=== PATIENT | male | born 1995 | race African-American/Black ===

== ENCOUNTER 2017-02-09 07:16 | Observation (INO) | payer OTHER ==
[2017-02-09 07:44] LABS: #Basophils 0.1 thou/uL (0.0-0.2); #Lymphocytes 2.9 thou/uL (1.20-3.40); #Monocytes 0.9 thou/uL (0.11-0.59); #Neutrophils 6.1 thou/uL (1.40-6.50); %Basophils 1.1 % (0.0-1.0); %Eosinophils 0.4 % (0.0-10.0); %Lymphocytes 29.1 % (28.0-48.0); %Monocytes 8.7 % (0.0-4.0); Hematocrit 46.2 % (42.0-52.0); Mean Platelet Volume 8.2 fL (7.4-10.4); Red Blood Cell (RBC) Count 4.97 mill/uL (4.00-5.20)
[2017-02-09 08:06] LABS: Acetaminophen Less than 6.0 mcg/mL (10.0-30.0); Salicylate Less than 8.0 mg/dL (15.0-30.0)
[2017-02-09 08:08] LABS: ALT (SGPT) 17 U/L (8-55); AST (SGOT) 29 U/L (10-45); Alkaline Phosphatase 80 U/L (Less than 750); Anion Gap 17 mmol/L (10-20); BUN (Urea Nitrogen) 13 mg/dL (8.4-21.0); CK (CPK) 421 U/L (30-200); Calc. Creatinine Clearance 0 mL/min (70-130); Calcium 10.4 mg/dL (7.8-10.44); Carbon Dioxide 22 mmol/L (22-29); Chloride 105 mmol/L (98-107); Estimated GFR-MDRD Greater than 90; Protein, Total 8.5 g/dL (6.0-8.3)
[2017-02-09 08:09] LABS: Bilirubin Negative (Negative); Blood, Urine Negative (Negative); Glucose, Urine (Dipstick) Negative (Negative); Ketone, Urine 15 mg/dL (Negative); Nitrite Negative (Negative); Protein, Urine (Dipstick) Negative (Neg-Trace); Urobilinogen 0.2 mg/dL (0.2-1.0)
[2017-02-09 08:19] LABS: Amphetamine Not Detected (NotDetected); Methadone Not Detected (NotDetected); Methamphetamine Not Detected (NotDetected)
--- NOTE | 2017-02-09 09:54 | CT ---
HEAD CT WITHOUT CONTRAST: Date: 02/09/17 COMPARISON: 10/12/14. HISTORY: Possible overdose, feeling of face heaviness. Headache. Head pain. TECHNIQUE: Serial axial CT imaging at 5 mm intervals from vertex through skull base without contrast. FINDINGS: The imaged paranasal sinuses/mastoid air cells are well aerated. There is no displaced calvarial fra cture. No intracranial hemorrhage, midline shift, mass effect, or ventricular enlargement. IMPRESSION: No acute findings. POS: [facility]
[2017-02-09] MEDS ORDERED: Acetaminophen 325 MG TAB PO PRN (10:46)
[2017-02-09] MEDS ORDERED: Chloraseptic Spray 180 ml Bottle PO PRN (10:46)
[2017-02-09] MEDS ORDERED: Eucerin (Mineral Oil/Petrolatum,White) 30 gm Jar TOP PRN (10:46)
[2017-02-09] MEDS ORDERED: Milk Of Magnesia 30 ML UDCUP PO PRN (10:46)
[2017-02-09] MEDS ORDERED: HYDROcodone/Acetaminophen 5/325 mg Tablet PO PRN (10:46)
[2017-02-09] MEDS ORDERED: Ondansetron HCl/PF 4 MG/2 ML Vial IVP PRN (10:46)
[2017-02-09] MEDS ORDERED: Loratadine 10 MG TAB PO PRN (10:46)
[2017-02-09] MEDS ORDERED: Loperamide HCl 2 MG CAP PO PRN (10:46)
[2017-02-09] MEDS ORDERED: Sodium Chloride 0.65% Nasal 44 ML BOT EA NARE PRN (10:46)
[2017-02-09] MEDS ORDERED: Zolpidem Tartrate 5 MG TAB PO PRN (10:46)
[2017-02-09] MEDS ORDERED: Diabetic Tussin 200 MG/10 ML UDCUP PO PRN (10:46)
[2017-02-09] MEDS ORDERED: Mag-Al 1200 mg/1200 mg/30 ML UDCUP PO PRN (10:46)
[2017-02-09] MEDS ORDERED: Senokot 8.6 MG TAB PO PRN (10:46)
[2017-02-09] MEDS ORDERED: Dextrose 5 % And 0.9 % NaCl 1,000 ML IV SCH (10:46)
[2017-02-09] MEDS ORDERED: Artificial Tears 18 DROP/0.9 ML EA EYE PRN (10:46)
[2017-02-09] MEDS ORDERED: Ondansetron ODT 4 MG TAB PO PRN (10:46)
[2017-02-09] MEDS ORDERED: Albuterol Sulfate 2.5 mg/3 ml Neb NEB PRN (10:46)
[2017-02-09 10:51] VITALS: BP 132/75; TEMP 99.2
[2017-02-09 10:55] VITALS: BMI 32.1
--- NOTE | 2017-02-09 11:25 | HP ---
PRIMARY CARE PHYSICIAN: Judie Neal M.D. REASON FOR ADMISSION: Accidental overdose with medications. HISTORY OF PRESENT ILLNESS: A 21-year-old male who has underlying history of attention deficit hyperactivity disorder and depression who woke up this morning , he was in half sleep and he took few medications, which he normally takes at home. He reports that normally he is supposed to take 1 pill, but he took randomly few pills from bottles and then he swallowed. After that the patient was feeling little bit upset in stomach. He was having headache and he felt his face was heavy; that is why he told his mother to go to hospital. When he arrived to the emergency room, at that time he was feeling little bit drowsy. ER physician noted little bit drooling of face, but when I saw this patient, at that time, he was perfectly normal and the patient's family member also reported that he is normal. The patient denies any suicidal ideation. He denies any homicidal ideation. At this point, we are observing this patient for any side effects from excessive medication. REVIEW OF SYSTEMS: The following complete review of systems was negative, unless otherwise mentioned in the HPI or below: Constitutional: Weight loss or gain, ability to conduct usual activities. Skin: Rash, itching. Eyes: Double vision, pain. ENT/Mouth: Nose bleeding, neck stiffness, pain, tenderness. Cardiovascular: Palpitations, dyspnea on exertion, orthopnea. Respiratory: Shortness of breath, wheezing, cough, hemoptysis, fever or night sweats. Gastrointestinal: Poor appetite, abdominal pain, heartburn, nausea, vomiting, constipation, or diarrhea. Genitourinary: Urgency, frequency, dysuria, nocturia. Musculoskeletal: Pain, swelling. Neurologic/Psychiatric: Anxiety, depression. Allergy/Immunologic: Skin rash, bleeding tendency. Please see my HPI for pertinent positive and negative. All other review of systems reviewed and negative except as mentioned in the HPI. PAST MEDICAL HISTORY: Asthma, mild intermittent. PAST SURGICAL HISTORY: Reviewed and negative. PAST PSYCHIATRIC HISTORY: Attention deficit hyperactivity disorder and depression. SOCIAL HISTORY: Patient lives at home with family. He denies any tobacco, alcohol or illicit drug abuse. He is by himself musician. ALLERGIES: METAPROTERENOL. CURRENT HOME MEDICATIONS: Singulair 10 mg daily, Concerta 36 mg p.o. daily, Lexapro 10 mg daily, Abilify 5 mg p.o. daily. EMERGENCY ROOM COURSE: Patient is given IV fluid. FAMILY HISTORY: No strong family history of CAD, CVA or cancer. PHYSICAL EXAMINATION: VITAL SIGNS: On arrival, blood pressure 131/86, pulse 80, respiratory rate 22, temperature 98.7, saturation 100% on room air, and weight 86.1 kilograms. GENERAL: Patient is currently alert, awake, no acute distress. HEAD: Normocephalic, atraumatic. EYES: Pupils round, reactive to light. Extraocular muscle intact. ENT: Oropharynx within normal limits. Moist mucous membranes. No oral lesions. No pharyngeal erythema, no exudate. NECK: Supple. Range of motion is normal. No meningeal signs of irritation. LUNGS: Clear to auscultation without any rhonchi or rales. CARDIAC: S1 and S2 regular without any murmur. ABDOMEN: Soft, bowel sounds present, nontender, nondistended. No organomegaly , no mass. No epigastric tenderness. BACK: Examination unremarkable, no CVA tenderness. EXTREMITIES: Upper extremity, passive movements of all joints are normal. Lower extremity, no edema. Good peripheral pulsation. SKIN: No skin rash. HEMATOLOGICAL SYSTEM: No lymphadenopathy. NEUROLOGIC: The patient is alert and oriented x3. Speech normal. Cranial nerves II-XII intact. Motor 5/5 in all four limbs. Sensation bilaterally symmetrical. Reflexes symmetrical. No cerebellar sign. No focal neurological deficit noted. PSYCHIATRIC: Normal affect. IMAGING AND SIGNIFICANT LABORATORY DATA: 1. EKG based on my review reveals normal sinus rhythm within normal limits. CT brain based on my review, no acute intracranial process. 2. CBC: WBC 10.0, hemoglobin 15.2, and platelet 247. BMP: Sodium 140, potassium 3.8, chloride 105, carbon dioxide 22, anion gap 17, BUN 13, creatinine 1.09, glucose 93, and calcium 10.4. 3. LFT: AST 29, ALT 17, alkaline phosphatase 80, albumin 4.5, TSH 3.26, CK 421. Urinalysis unremarkable. Urine drug screen negative. Serum drug screen negative. ASSESSMENT AND PLAN/IMPRESSION: 1. Accidental drug overdose with prescription of medications. At this point, patient will be observed on telemetry floor for any arrhythmia or any kind of side effects. In next several hours, if patient remains unremarkable and telemetry does not show any arrhythmia, then this patient will be medically stable for discharge. 2. Anxiety and depression with attention deficit hyperactivity disorder. Patient will continue upon discharge, his home medication from tomorrow. 3. Mild intermittent asthma. We will continue Singulair 10 mg p.o. daily and albuterol nebulization p.r.n. basis. 4. Deep venous thrombosis prophylaxis not needed because we are expecting discharge in 24 hours. 5. Gastrointestinal prophylaxis, Pepcid 20 mg p.o. b.i.d. 6. Code status: The patient is FULL CODE. Patient's parents is surrogate decision maker. 7. Obesity with body mass index 32. Dietary education given, weight loss education given. Healthy lifestyle measures discussed with the patient. 8. Rhabdomyolysis: continue IVF, TSH is normal DISPOSITION PLAN: The patient can be discharged later on today if no arrhythmia or early in the morning, patient does not have any suicidal ideation or homicidal ideation and he is mentally stable. He does not need any MHMR at this point, but he can follow up with primary care physician or psychiatrist after discharge. Plan of care and test results discussed with the patient and family member at bedside. WALTER
--- NOTE | 2017-02-09 18:47 | DIS ---
DATE OF ADMISSION: 02/09/2017 DATE OF DISCHARGE: 02/09/2017 DISCHARGE DISPOSITION: Home. PRIMARY DISCHARGE DIAGNOSES: Accidental drug overdose, rhabdomyolysis. SECONDARY DISCHARGE DIAGNOSES: Attention deficit hyperactivity disorder, anxiety, depression, asthm a, obesity with body mass index 32. PRIMARY PROCEDURE/OPERATION: None. RADIOLOGICAL INVESTIGATION: CT brain was normal. SIGNIFICANT LABORATORY: CBC normal. BMP normal. CK 421. TSH 3.26. Urinalysis normal. Urine marta g screen, serum drug screen negative. DISCHARGE MEDICATIONS: The patient will continue his home medication, albuterol nebulization q.6 ho urly, Proventil HFA 2 puffs q.4 hourly p.r.n., Abilify 5 mg p.o. daily, Lexapro 10 mg p.o. daily, Co ncerta 72 mg p.o. daily, Ritalin 10 mg p.o. daily, Singulair 10 mg p.o. at bedtime. CONTRAINDICATIONS: None. CODE STATUS: FULL CODE. INPATIENT CONSULTANTS: None. ALLERGIES: METAPROTERENOL. DISCHARGE PLAN: Post hospital, the patient will follow up with primary care physician in 1-7 days. HOSPITAL COURSE: A 21-year-old male who woke up this morning and he took unknown quantity of his pr escription medications accidentally. He was not suicidal or homicidal. He was having facial heavin ess and upset stomach and that is why he decided to come to the emergency room for evaluation. In [facility] emergency room, he had CT brain which was negative for any acute process. We hydrated him with I V fluids for his rhabdomyolysis. The patient did not have any kind of arrhythmia on telemetry floor and he remained asymptomatic. He was feeling much better by the end of today, We discharging home . The patient's family members including both parents were notified about discharge plan and they a greed with to go home today. The patient was admitted and discharged on the same day. Please see my H and P for further details from this morning.
[2017-02-09] MEDS ORDERED: Famotidine 20 MG TAB PO SCH (21:00)
[2017-02-09] MEDS ORDERED: FLU VACC QS2017-18 36 mo. & older 0.5 ML SYRINGE IM ONE (21:00)
== END 2017-02-09 18:23 | disposition home or self-care (01) ==
LOC: ERS 07:16 → 2SW 10:44
PROVIDERS: ADMIT Internal Medicine; ATTEND Internal Medicine
DX: T50.901A Poisoning by unspecified drugs, medicaments and biological substances, accidental (unintentional), initial encounter (principal); M62.82 Rhabdomyolysis; F90.9 Attention-deficit hyperactivity disorder, unspecified type; F41.9 Anxiety disorder, unspecified; F32.9 Major depressive disorder, single episode, unspecified; J45.909 Unspecified asthma, uncomplicated; E66.9 Obesity, unspecified; Z68.32 Body mass index [BMI] 32.0-32.9, adult; Z88.8 Allergy status to other drugs, medicaments and biological substances; Z79.899 Other long term (current) drug therapy
CPT/HCPCS: 36415; 70450; 80053; 80306; 80307; 81003; 82550; 84443; 85025; 93005; 94760; 96360; 96361; G0378

== ENCOUNTER 2018-01-02 16:27 | Emergency (ER) | payer OTHER ==
[2018-01-02 16:49] LABS: Bilirubin Negative (Negative); Blood, Urine Negative (Negative); Clarity Clear (Clear); Glucose, Urine (Dipstick) Negative (Negative); Leukocyte Negative (Negative); Nitrite Negative (Negative); Protein, Urine (Dipstick) Negative (Neg-Trace); Urobilinogen 0.2 mg/dL (0.2-1.0); pH, Urine 5.5 (5.0-9.0)
[2018-01-02 16:53] LABS: Specific Gravity, Urine 1.008 (1.002-1.036)
[2018-01-02 17:07] LABS: Amphetamine Not Detected (NotDetected); Barbiturates Screen Not Detected (NotDetected); Benzodiazepine Screen Not Detected (NotDetected); Cocaine Metabolite Screen Not Detected (NotDetected); Medtox Control Line Valid? VALID (VALID); Methadone Not Detected (NotDetected); Methamphetamine Not Detected (NotDetected); Opiate Screen Not Detected (NotDetected); Oxycodone Screen Not Detected (NotDetected); Phencyclidine (PCP) Not Detected (NotDetected); THC/Cannabinoid Screen Not Detected (NotDetected); Tricyclic Screen Not Detected (NotDetected)
[2018-01-02 17:21] LABS: #Basophils 0.2 thou/uL (0.0-0.2); #Eosinphils 0.1 thou/uL (0.0-0.7); #Lymphocytes 2.5 thou/uL (1.20-3.40); #Monocytes 1.2 thou/uL (0.11-0.59); #Neutrophils 9.3 thou/uL (1.40-6.50); %Basophils 1.6 % (0.0-1.0); %Eosinophils 0.4 % (0.0-10.0); %Lymphocytes 19.1 % (28.0-48.0); %Monocytes 8.8 % (0.0-4.0); %Neutrophils 70.1 % (31.0-61.0); Hemoglobin 15.2 g/dL (14.0-18.0); Mean Corpuscular Hemoglobin 29.3 pg (25.0-35.0); Mean Platelet Volume 9.2 fL (7.4-10.4); Platelet Count 240 thou/uL (130-400); RBC Distribution Width 11.1 % (11.5-14.5); Red Blood Cell (RBC) Count 5.17 mill/uL (4.00-5.20); White Blood Cell (WBC) Count 13.3 thou/uL (4.8-10.8)
[2018-01-02] MEDS ORDERED: Acetaminophen 500 MG TAB ONE (17:24)
[2018-01-02 17:27] LABS: ALT (SGPT) 59 U/L (8-55); AST (SGOT) 50 U/L (5-34); Albumin 5.1 g/dL (3.5-5.0); Alkaline Phosphatase 74 U/L (Less than 750); Anion Gap 17 mmol/L (10-20); BUN (Urea Nitrogen) 19 mg/dL (8.9-20.6); Bilirubin, Total 1.1 mg/dL (0.2-1.2); CK (CPK) 817 U/L (30-200); CKMB 5.1 ng/mL (0-6.6); Calc. Creatinine Clearance 0 mL/min (70-130); Calcium 10.8 mg/dL (7.8-10.44); Carbon Dioxide 23 mmol/L (22-29); Chloride 95 mmol/L (98-107); Estimated GFR-MDRD 78; Glucose 83 mg/dL (70-105); Lipase 15 U/L (8-78); Potassium 3.4 mmol/L (3.5-5.1); Protein, Total 9.1 g/dL (6.0-8.3); Sodium 132 mmol/L (136-145); Troponin I Less than 0.010 ng/mL (< 0.028)
[2018-01-02 17:28] LABS: Acetaminophen Less than 6.0 mcg/mL (10.0-30.0); Alcohol Less than 10 mg/dL (Less than 10); Salicylate Less than 8.0 mg/dL (15.0-30.0)
== END 2018-01-02 18:34 | disposition home or self-care (01) ==
LOC: SCSER 16:27
DX: T67.5XXA Heat exhaustion, unspecified, initial encounter (principal); E86.0 Dehydration; J45.909 Unspecified asthma, uncomplicated; F90.9 Attention-deficit hyperactivity disorder, unspecified type; F31.9 Bipolar disorder, unspecified; F42.9 Obsessive-compulsive disorder, unspecified; F17.210 Nicotine dependence, cigarettes, uncomplicated; Z79.899 Other long term (current) drug therapy; X30.XXXA Exposure to excessive natural heat, initial encounter
CPT/HCPCS: 80053; 80306; 80307; 81003; 82550; 82553; 83690; 84484; 85025; 93005; 96360; 96361

== ENCOUNTER 2018-01-04 21:18 | Emergency (ER) | payer OTHER ==
--- NOTE | 2018-01-04 21:45 | RAD ---
RIGHT FOOT THREE VIEWS: 01/04/18 HISTORY: Right foot injury. FINDINGS: Lisfranc joint alignment is anatomic. Pes planus on the lateral view. No acute fracture, dislocation, or aggressive osseous erosions. IMPRESSION: No acute osseous abnormalities are demonstrated. POS: [facility]
[2018-01-04] MEDS ORDERED: HYDROcodone/Acetaminophen 10/325 mg Tablet ONE (23:11)
== END 2018-01-04 23:27 | disposition home or self-care (01) ==
LOC: ERS 21:18
DX: S90.111A Contusion of right great toe without damage to nail, initial encounter (principal); J45.909 Unspecified asthma, uncomplicated; F90.9 Attention-deficit hyperactivity disorder, unspecified type; F31.9 Bipolar disorder, unspecified; F17.210 Nicotine dependence, cigarettes, uncomplicated; F42.9 Obsessive-compulsive disorder, unspecified; Z79.899 Other long term (current) drug therapy; Z71.6 Tobacco abuse counseling; W23.0XXA Caught, crushed, jammed, or pinched between moving objects, initial encounter
CPT/HCPCS: 99406

== ENCOUNTER 2018-05-31 15:35 | Emergency (ER) | payer OTHER ==
[2018-05-31 16:40] LABS: #Basophils 0.1 thou/uL (0.0-0.2); #Eosinphils 0.2 thou/uL (0.0-0.7); #Lymphocytes 2.9 thou/uL (1.20-3.40); #Monocytes 0.7 thou/uL (0.11-0.59); #Neutrophils 3.5 thou/uL (1.40-6.50); %Eosinophils 2.3 % (0.0-10.0); %Lymphocytes 39.5 % (21.0-51.0); %Monocytes 9.6 % (0.0-10.0); %Neutrophils 47.6 % (42.0-75.0); Hemoglobin 14.2 g/dL (14.0-18.0); Mean Corpuscular HGB CONC 32.4 g/dL (32.0-36.0); Mean Corpuscular Hemoglobin 29.9 pg (27.0-31.0); Mean Corpuscular Volume 92.5 fL (78.0-98.0); Mean Platelet Volume 8.4 fL (7.4-10.4); Platelet Count 241 thou/uL (130-400); RBC Distribution Width 11.3 % (11.5-14.5); Red Blood Cell (RBC) Count 4.75 mill/uL (4.70-6.10); White Blood Cell (WBC) Count 7.3 thou/uL (4.8-10.8)
[2018-05-31 16:49] LABS: ALT (SGPT) 51 U/L (8-55); AST (SGOT) 36 U/L (5-34); Albumin 4.3 g/dL (3.5-5.0); Alkaline Phosphatase 63 U/L (40-150); Anion Gap 11 mmol/L (10-20); BUN (Urea Nitrogen) 10 mg/dL (8.9-20.6); Bilirubin, Total 0.6 mg/dL (0.2-1.2); Calc. Creatinine Clearance 0 mL/min (70-130); Calcium 9.5 mg/dL (7.8-10.44); Carbon Dioxide 27 mmol/L (22-29); Chloride 107 mmol/L (98-107); Estimated GFR-MDRD 82; Globulin 3.5 g/dL (2.4-3.5); Glucose 76 mg/dL (70-105); Lipase 24 U/L (8-78); Potassium 4.1 mmol/L (3.5-5.1); Protein, Total 7.8 g/dL (6.0-8.3); Sodium 141 mmol/L (136-145)
== END 2018-05-31 16:41 | disposition left against medical advice (07) ==
LOC: ERS 15:35
DX: Z53.21 Procedure and treatment not carried out due to patient leaving prior to being seen by health care provider (principal)
CPT/HCPCS: 36415; 80053; 83690; 85025

== ENCOUNTER 2019-03-24 11:02 | Emergency (ER) | payer OTHER ==
[2019-03-24] MEDS ORDERED: Ketorolac Tromethamine 30 MG/ML VIAL ONE (12:11)
[2019-03-24] MEDS ORDERED: Diazepam 10 MG/2 ML SYRINGE ONE (12:17)
[2019-03-24] MEDS ORDERED: Iopamidol 370 76% 100 ML VIAL ONE (12:56)
--- NOTE | 2019-03-24 13:34 | CT ---
CTA OF THE NECK WITH IV CONTRAST AND 3-D REFORMATTED IMAGING. INDICATION: Pop neck; severe right-sided neck pain COMPARISON: None FINDINGS: Right CCA: Patent. Right ICA: Patent. Right Subclavian: Patent. Right Vertebral Artery: Patent. Left CCA: Patent. Left ICA: Patent. Left Subclavian: Patent. Left Vertebral Artery: Patent. Aerodigestive tract: Clear. Parotids/Submandibular/Thyroid glands: Normal. Lymph nodes: There are mildly prominent lymph nodes seen within the left level IIA position. One of the largest measures 1.6 cm on image 163 of series 2. There are shotty appearing lymph nodes seen within the upper neck bilaterally. Lung Apices: Clear. Bones: No acute osseous abnormality. Incidentals: None. IMPRESSION: 1. No hemodynamically significant stenosis, occlusion or aneurysmal formation. 2. Nonspecific mildly prominent lymph nodes within the upper neck. The largest is seen within the lef t level IIA position. Clinical follow-up is recommended.
== END 2019-03-24 14:40 | disposition home or self-care (01) ==
LOC: ERS 11:02
DX: S16.1XXA Strain of muscle, fascia and tendon at neck level, initial encounter (principal); F90.9 Attention-deficit hyperactivity disorder, unspecified type; F31.9 Bipolar disorder, unspecified; F17.210 Nicotine dependence, cigarettes, uncomplicated; Z79.899 Other long term (current) drug therapy; X50.9XXA Other and unspecified overexertion or strenuous movements or postures, initial encounter
CPT/HCPCS: 70498; 96374; 96375; J1885; J3360; L0120; Q9967

== ENCOUNTER 2019-06-26 00:53 | Emergency (ER) | payer OTHER ==
[2019-06-26 01:29] LABS: Bilirubin Negative (Negative); Blood, Urine Negative (Negative); Clarity Clear (Clear); Glucose, Urine (Dipstick) Normal (Negative); Leukocyte Negative Leu/uL (Negative); Nitrite Negative (Negative); Protein, Urine (Dipstick) 20 mg/dL (Neg-Trace); Urobilinogen Normal mg/dL (Less than 2)
[2019-06-26 01:31] LABS: #Basophils 0.1 thou/uL (0.0-0.2); #Eosinphils 0.1 thou/uL (0.0-0.7); #Lymphocytes 2.8 thou/uL (1.20-3.40); #Monocytes 0.8 thou/uL (0.11-0.59); #Neutrophils 5.5 thou/uL (1.40-6.50); %Basophils 0.9 % (0.0-1.0); %Eosinophils 1.5 % (0.0-10.0); %Lymphocytes 29.5 % (21.0-51.0); %Monocytes 8.6 % (0.0-10.0); %Neutrophils 59.5 % (42.0-75.0); Hemoglobin 14.3 g/dL (14.0-18.0); Mean Corpuscular HGB CONC 33.4 g/dL (32.0-36.0); Mean Corpuscular Hemoglobin 30.6 pg (27.0-31.0); Mean Corpuscular Volume 91.7 fL (78.0-98.0); Mean Platelet Volume 9.1 fL (7.4-10.4); Platelet Count 229 thou/uL (130-400); RBC Distribution Width 11.9 % (11.5-14.5); Red Blood Cell (RBC) Count 4.66 mill/uL (4.70-6.10); White Blood Cell (WBC) Count 9.3 thou/uL (4.8-10.8)
[2019-06-26 01:48] LABS: Amphetamine Not Detected (NotDetected); Barbiturates Screen Not Detected (NotDetected); Benzodiazepine Screen Not Detected (NotDetected); Cocaine Metabolite Screen Not Detected (NotDetected); Medtox Control Line Valid? VALID (VALID); Medtox Reader # READER 4; Methadone Not Detected (NotDetected); Methamphetamine Not Detected (NotDetected); Opiate Screen Not Detected (NotDetected); Oxycodone Screen Not Detected (NotDetected); Phencyclidine (PCP) Not Detected (NotDetected); THC/Cannabinoid Screen Not Detected (NotDetected); Tricyclic Screen Not Detected (NotDetected)
[2019-06-26 01:54] LABS: ALT (SGPT) 33 U/L (8-55); AST (SGOT) 32 U/L (5-34); Acetaminophen Less than 6.0 mcg/mL (10.0-30.0); Albumin 4.7 g/dL (3.5-5.0); Alcohol Less than 10 mg/dL (Less than 10); Alkaline Phosphatase 71 U/L (40-110); Anion Gap 14 mmol/L (10-20); BUN (Urea Nitrogen) 14 mg/dL (8.9-20.6); Bilirubin, Total 0.5 mg/dL (0.2-1.2); Calc. Creatinine Clearance 0 mL/min (70-130); Calcium 9.9 mg/dL (7.8-10.44); Carbon Dioxide 22 mmol/L (22-29); Chloride 105 mmol/L (98-107); Estimated GFR-MDRD Greater than 90; Globulin 3.4 g/dL (2.4-3.5); Glucose 93 mg/dL (70-105); Protein, Total 8.1 g/dL (6.0-8.3); Salicylate Less than 8.0 mg/dL (15.0-30.0); Sodium 137 mmol/L (136-145)
== END 2019-06-26 04:30 | disposition home or self-care (01) ==
LOC: ERS 00:53
DX: T39.312A Poisoning by propionic acid derivatives, intentional self-harm, initial encounter (principal); T43.592A Poisoning by other antipsychotics and neuroleptics, intentional self-harm, initial encounter; F17.210 Nicotine dependence, cigarettes, uncomplicated; F90.9 Attention-deficit hyperactivity disorder, unspecified type; F31.9 Bipolar disorder, unspecified; F42.9 Obsessive-compulsive disorder, unspecified; J45.909 Unspecified asthma, uncomplicated; Z79.899 Other long term (current) drug therapy; Z79.01 Long term (current) use of anticoagulants
CPT/HCPCS: 36415; 80053; 80306; 80307; 81003; 82550; 84443; 85025; 93005; 96360

== ENCOUNTER 2019-06-27 11:34 | Emergency (ER) | payer OTHER ==
[2019-06-27 13:35] LABS: #Eosinphils 0.2 thou/uL (0.0-0.7); #Lymphocytes 2.7 thou/uL (1.20-3.40); #Monocytes 0.6 thou/uL (0.11-0.59); #Neutrophils 2.9 thou/uL (1.40-6.50); %Basophils 0.5 % (0.0-1.0); %Eosinophils 2.9 % (0.0-10.0); %Lymphocytes 41.9 % (21.0-51.0); %Monocytes 8.8 % (0.0-10.0); %Neutrophils 45.9 % (42.0-75.0); Hemoglobin 14.8 g/dL (14.0-18.0); Mean Corpuscular HGB CONC 33.3 g/dL (32.0-36.0); Mean Corpuscular Hemoglobin 30.4 pg (27.0-31.0); Mean Corpuscular Volume 91.3 fL (78.0-98.0); Mean Platelet Volume 9.1 fL (7.4-10.4); Platelet Count 225 thou/uL (130-400); RBC Distribution Width 11.8 % (11.5-14.5); Red Blood Cell (RBC) Count 4.86 mill/uL (4.70-6.10); White Blood Cell (WBC) Count 6.4 thou/uL (4.8-10.8)
--- NOTE | 2019-06-27 13:38 | CT ---
CT HEAD WITHOUT CONTRAST; Date: 06/27/2019 HISTORY: Headache. COMPARISON: 02/09/17. FINDINGS: Ventricles have normal size and position. There is no evidence of intracranial hemorrhage or mass. No edema or infarct. Sinuses and mastoids are clear. IMPRESSION: No acute abnormality. POS: [facility]
[2019-06-27 13:57] LABS: ALT (SGPT) 29 U/L (8-55); AST (SGOT) 27 U/L (5-34); Albumin 4.6 g/dL (3.5-5.0); Alkaline Phosphatase 77 U/L (40-110); Anion Gap 14 mmol/L (10-20); BUN (Urea Nitrogen) 8 mg/dL (8.9-20.6); Bilirubin, Total 0.6 mg/dL (0.2-1.2); Calc. Creatinine Clearance 0 mL/min (70-130); Calcium 9.9 mg/dL (7.8-10.44); Carbon Dioxide 22 mmol/L (22-29); Chloride 106 mmol/L (98-107); Estimated GFR-MDRD Greater than 90; Globulin 3.2 g/dL (2.4-3.5); Glucose 92 mg/dL (70-105); Potassium 4.5 mmol/L (3.5-5.1); Protein, Total 7.8 g/dL (6.0-8.3); Sodium 137 mmol/L (136-145)
== END 2019-06-27 14:30 | disposition home or self-care (01) ==
LOC: ERS 11:34
DX: I10 Essential (primary) hypertension (principal); J45.909 Unspecified asthma, uncomplicated; F90.9 Attention-deficit hyperactivity disorder, unspecified type; F31.9 Bipolar disorder, unspecified; F42.9 Obsessive-compulsive disorder, unspecified; F17.210 Nicotine dependence, cigarettes, uncomplicated; Z79.899 Other long term (current) drug therapy
CPT/HCPCS: 36415; 70450; 80053; 84484; 85025; 93005

== ENCOUNTER 2020-07-14 20:40 | Emergency (ER) | payer OTHER ==
[2020-07-14 21:57] LABS: #Basophils 0.1 thou/uL (0.0-0.2); #Eosinphils 0.1 thou/uL (0.0-0.7); #Lymphocytes 2.2 thou/uL (1.20-3.40); #Monocytes 2.1 thou/uL (0.11-0.59); #Neutrophils 10.9 thou/uL (1.40-6.50); %Basophils 0.4 % (0.0-1.0); %Eosinophils 0.5 % (0.0-10.0); %Lymphocytes 14.5 % (21.0-51.0); %Monocytes 13.5 % (0.0-10.0); %Neutrophils 71.2 % (42.0-75.0); Hemoglobin 13.6 g/dL (14.0-18.0); Mean Corpuscular HGB CONC 32.4 g/dL (32.0-36.0); Mean Corpuscular Volume 92.6 fL (78.0-98.0); Platelet Count 196 thou/uL (130-400); RBC Distribution Width 11.5 % (11.5-14.5); Red Blood Cell (RBC) Count 4.53 mill/uL (4.70-6.10); White Blood Cell (WBC) Count 15.3 thou/uL (4.8-10.8)
[2020-07-14 22:20] LABS: ALT (SGPT) 37 U/L (8-55); AST (SGOT) 35 U/L (5-34); Albumin 4.3 g/dL (3.5-5.0); Alkaline Phosphatase 83 U/L (40-110); Anion Gap 13 mmol/L (10-20); BUN (Urea Nitrogen) 10 mg/dL (8.9-20.6); Bilirubin, Total 0.8 mg/dL (0.2-1.2); CK (CPK) 588 U/L (30-200); Calc. Creatinine Clearance 0 mL/min (70-130); Calcium 9.4 mg/dL (7.8-10.44); Carbon Dioxide 28 mmol/L (22-29); Chloride 102 mmol/L (98-107); Globulin 3.7 g/dL (2.4-3.5); Glucose 80 mg/dL (70-105); Sodium 139 mmol/L (136-145)
[2020-07-14 23:11] LABS: Bilirubin Negative (Negative); Blood, Urine Negative (Negative); Clarity Clear (Clear); Glucose, Urine (Dipstick) Normal (Negative); Ketone, Urine Negative (Negative); Leukocyte Negative Leu/uL (Negative); Nitrite Negative (Negative); Protein, Urine (Dipstick) 20 mg/dL (Neg-Trace); Specific Gravity, Urine 1.027 (1.002-1.036); Urobilinogen Normal mg/dL (Less than 2); pH, Urine 6.5 (5.0-9.0)
[2020-07-14] MEDS ORDERED: Acetaminophen 500 MG TAB ONE (23:33)
== END 2020-07-15 00:37 | disposition home or self-care (01) ==
LOC: ERS 20:40
DX: B34.9 Viral infection, unspecified (principal); E86.0 Dehydration; Z87.891 Personal history of nicotine dependence
CPT/HCPCS: 36415; 80053; 81003; 82550; 85025; 87081; 87430; 87804; 99283

== ENCOUNTER 2020-07-22 07:46 | Emergency (ER) | payer BC, OTHER ==
[2020-07-22] MEDS ORDERED: Acetaminophen 500 MG TAB ONE (08:11)
== END 2020-07-22 08:33 | disposition home or self-care (01) ==
LOC: ERS 07:46
DX: S93.401A Sprain of unspecified ligament of right ankle, initial encounter (principal); S93.601A Unspecified sprain of right foot, initial encounter; J45.909 Unspecified asthma, uncomplicated; Z87.891 Personal history of nicotine dependence; Z79.899 Other long term (current) drug therapy; W10.9XXA Fall (on) (from) unspecified stairs and steps, initial encounter

== ENCOUNTER 2020-08-10 16:05 | Emergency (ER) | payer BC, OTHER ==
[2020-08-10] MEDS ORDERED: Ketorolac Tromethamine 30 MG/ML VIAL ONE (17:00)
== END 2020-08-10 17:20 | disposition home or self-care (01) ==
LOC: ERS 16:05
DX: S63.501A Unspecified sprain of right wrist, initial encounter (principal); J45.909 Unspecified asthma, uncomplicated; X50.9XXA Other and unspecified overexertion or strenuous movements or postures, initial encounter
CPT/HCPCS: 96372; J1885

== ENCOUNTER 2020-12-06 07:21 | Emergency (ER) | payer BC, OTHER | END 2020-12-06 08:02 | disposition home or self-care (01) | LOC: ERS 07:21 | DX: R11.2 Nausea with vomiting, unspecified (principal); R19.7 Diarrhea, unspecified; Z87.891 Personal history of nicotine dependence | CPT/HCPCS: 99283 ==

== ENCOUNTER → 2021-01-15 | Outpatient (CLI) | payer BC, OTHER | LOC: NM 08:00 | PROVIDERS: ATTEND Student in an Organized Health Care Education/Training Program | DX: E21.3 Hyperparathyroidism, unspecified (principal) | CPT/HCPCS: 78072; A9500 ==

== ENCOUNTER 2021-06-25 19:13 | Emergency (ER) | payer BC, OTHER ==
[2021-06-25 20:06] LABS: Hemoglobin 14.2 g/dL (14.0-18.0); Mean Corpuscular Hemoglobin 30.3 pg (27.0-31.0); Mean Corpuscular Volume 91.9 fL (78.0-98.0); Mean Platelet Volume 8.2 fL (7.4-10.4); Platelet Count 214 thou/uL (130-400); RBC Distribution Width 11.9 % (11.5-14.5); Red Blood Cell (RBC) Count 4.67 mill/uL (4.70-6.10); White Blood Cell (WBC) Count 7.2 thou/uL (4.8-10.8)
[2021-06-25 20:18] LABS: ALT (SGPT) 62 U/L (8-55); AST (SGOT) 40 U/L (5-34); Albumin 4.2 g/dL (3.5-5.0); Alkaline Phosphatase 61 U/L (40-110); Anion Gap 15 mmol/L (10-20); BUN (Urea Nitrogen) 15 mg/dL (8.9-20.6); Bilirubin, Total 0.6 mg/dL (0.2-1.2); CK (CPK) 514 U/L (30-200); Calc. Creatinine Clearance 0 mL/min (70-130); Calcium 9.1 mg/dL (7.8-10.44); Carbon Dioxide 22 mmol/L (22-29); Chloride 106 mmol/L (98-107); Globulin 3.7 g/dL (2.4-3.5); Glucose 80 mg/dL (70-105); Potassium 3.8 mmol/L (3.5-5.1); Protein, Total 7.9 g/dL (6.0-8.3); Sodium 139 mmol/L (136-145)
[2021-06-25 20:25] LABS: Band 10 % (5-11); Eosinophils 3 % (0-10); Lymphocytes 21 % (21-51); MDiff Complete? YES; Monocytes 14 % (0-10); Neutrophil 49 % (42-75); Platelet Morphology Comment Appears Adequate; Polychromasia SLIGHT = 2-3 cells (100X) (0-2/hpf); Reactive Lymphocytes 3 % (0-10)
== END 2021-06-25 21:14 | disposition home or self-care (01) ==
LOC: ERS 19:13
DX: R25.2 Cramp and spasm (principal); R74.01 Elevation of levels of liver transaminase levels; J45.909 Unspecified asthma, uncomplicated; Z87.891 Personal history of nicotine dependence
CPT/HCPCS: 36415; 80053; 82550; 85025; 99284

== ENCOUNTER 2021-08-23 09:36 | Emergency (ER) | payer BC, OTHER ==
[2021-08-23] MEDS ORDERED: Ondansetron ODT 4 MG TAB ONE (11:28)
== END 2021-08-23 11:25 | disposition home or self-care (01) ==
LOC: ERS 09:36
DX: R11.2 Nausea with vomiting, unspecified (principal); R19.7 Diarrhea, unspecified; Z87.891 Personal history of nicotine dependence
CPT/HCPCS: 99283; Q0162